=== PATIENT | female | born 1960 | race Asian ===

== ENCOUNTER 2018-10-25 06:16 | Day surgery (SDC) | payer BC ==
[2018-10-25] MEDS: LIDOCAINE 2% (MDV) 20 ML INJ
[2018-10-25] MEDS ORDERED: PROPOFOL 20 ML ×2 (07:00→07:46)
[2018-10-25] MEDS ORDERED: LIDOCAINE 2% (SDV) 5 ML INJ (07:00)
[2018-10-25] MEDS ORDERED: FENTAnyl 50 MCG/ML VIAL (07:00)
[2018-10-25] MEDS ORDERED: CEFAZOLIN 1 GM INJ (07:00)
[2018-10-25 07:29] LABS: INR 0.81; PROTIME 11.3 Sec (11.9-14.9); PT RATIO 0.9
[2018-10-25 07:30] LABS: PARTIAL THROMBOPLASTIN TIME 29.2 Sec (23.0-35.0)
[2018-10-25] MEDS ORDERED: FENTAnyl 50 MCG/ML VIAL IV ×3 (08:00)
[2018-10-25] MEDS ORDERED: ONDANSETRON 4 MG INJ IV (08:00)
[2018-10-25] MEDS ORDERED: MEPERIDINE 25 MG INJ IV (08:00)
[2018-10-25] MEDS ORDERED: OXYCODONE/ACETAMINOPHEN (5/325) TAB PO ×2 (08:00)
[2018-10-25] MEDS ORDERED: LABETALOL HCL 20MG INJ IV (08:00)
[2018-10-25] MEDS ORDERED: ONDANSETRON 4 MG INJ (08:05)
[2018-10-25] MEDS ORDERED: METOCLOPRAMIDE 10 MG INJ (08:06)
[2018-10-25] MEDS ORDERED: FAMOTIDINE 20 MG INJ (08:06)
[2018-10-25] MEDS ORDERED: DEXAMETHASONE 4 MG/ML 5 ML INJ (08:06)
[2018-10-25] MEDS ORDERED: KETOROLAC 30 MG INJ (08:54)
[2018-10-25] MEDS ORDERED: PROPOFOL 40 ML (08:54)
[2018-10-25] MEDS: POLYMYXIN/BACITRACIN 1L IRRIG (09:25)
[2018-10-25] MEDS: DEXAMETHASONE 4 MG/ML 1 ML INJ ×2 (09:25)
[2018-10-25] MEDS: BUPIVACAINE 0.5% (SDV) 30 ML INJ (09:25)
[2018-10-25] MEDS ORDERED: HYDROCODONE/APAP (5/325) TAB PO (10:00)
== END 2018-10-25 11:25 | disposition home or self-care (01) ==
LOC: SDS 06:16
DX: M21.612 Bunion of left foot (principal); M20.12 Hallux valgus (acquired), left foot
CPT/HCPCS: 28297; 73630-LT; 85610; 85730; 93005